=== PATIENT | female | born 1985 | race Caucasian/White ===

== ENCOUNTER 2018-11-22 09:58 | Emergency (ER) | payer BC ==
[2018-11-22] MEDS ORDERED: Ketorolac *IM* INJ* 60 MG/2 ML VIAL IM ONE (10:11)
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
[2018-11-22 11:38] VITALS: BP 125/89
== END 2018-11-22 11:37 | disposition home or self-care (01) ==
LOC: ED 09:58
DX: S82.001A Unspecified fracture of right patella, initial encounter for closed fracture (principal); W22.8XXA Striking against or struck by other objects, initial encounter; Y92.814 Boat as the place of occurrence of the external cause
CPT/HCPCS: 96372; 99282; J1885

== ENCOUNTER 2022-07-01 08:02 | Inpatient (IN) ==
[2022-07-01] MEDS ORDERED: Lactated Ringers 1000 ml BAG 1,000 ML IV ONE ×2 (08:22→14:36)
[2022-07-01] MEDS ORDERED: Buffered Lidocaine 1% SYRIN 1 ml INTRADERM ONE (08:22)
[2022-07-01] MEDS ORDERED: Lactated Ringers 1000 ml BAG 1,000 ML IV SCH ×3 (09:00→23:00)
[2022-07-01] MEDS ORDERED: Oxytocin in LR 20,000 MILLI.UNIT/1,000 ML BAG IV SCH ×2 (09:15→22:15)
[2022-07-01 09:27] LABS: ABS Monocytes 0.6 10^3/ul (0-0.8); ABS Neutrophils 5.6 10^3/ul (1.5-7.7); Eosinophil % 0.7 %; Hematocrit 37 % (35-47); Hemoglobin 12.7 g/dL (12.0-16.0); Lymphocyte % 14.2 %; Mean Corpuscular HGB Conc 34 g/dL (31-36); Mean Corpuscular Hemoglobin 31 pg (27-31); Mean Corpuscular Volume 91 fL (80-97); Mean Platelet Volume 7.5 fL (7.4-10.4); Platelet Count 167 10^3/uL (150-450); Red Blood Count 4.11 10^6 /uL (3.70-4.87); Red Cell Distribution Width 13 % (10-15); White Blood Count 7.3 10^3/uL (3.5-10.8)
[2022-07-01 09:33] LABS: Urine Benzodiazepine Screen None Detected (None Detect); Urine Cannabinoids Screen None Detected (None Detect); Urine Opiates Screen None Detected (None Detect)
[2022-07-01] MEDS ORDERED: Lidocaine 1.5% EPI 1:200,000 30 ML SDV ONE (14:07)
[2022-07-01] MEDS ORDERED: OBEPIDURAL (200 ML) 200 ML EPIDURAL ONE (14:07)
[2022-07-01] MEDS ORDERED: Sodium Citrate/Citric Acid LIQ 15 ML UDC PO PRN (14:36)
[2022-07-01] MEDS ORDERED: OBEPIDURAL (200 ML) 200 ML EPIDURAL SCH (15:00)
[2022-07-01 15:52] LABS: Urine Appearance Clear; Urine Bilirubin Negative (Negative); Urine Blood Negative (Negative); Urine Color Yellow; Urine Glucose Negative (Negative); Urine Ketones Negative (Negative); Urine Nitrite Negative (Negative); Urine Protein Negative (Negative); Urine Specific Gravity 1.009 (1.002-1.030); Urine Urobilinogen Negative (Negative)
[2022-07-01] MEDS ORDERED: Lidocaine 2% PF 10 ML AMP (OR) ONE (21:19)
[2022-07-01] MEDS ORDERED: Bupivacaine 0.25% SDV PF 10 ML VIAL INJ ONE (21:19)
[2022-07-01] MEDS ORDERED: Dibucaine 1% OINT 28.35 GM TUBE PR PRN (22:12)
[2022-07-01] MEDS ORDERED: Glycerin ADULT 2.4 gm SUPP PR PRN (22:12)
[2022-07-01] MEDS ORDERED: Witch Hazel PAD JAR TOPICAL PRN (22:12)
[2022-07-02 07:00] LABS: ABS Basophils 0.1 10^3/ul (0-0.2); ABS Monocytes 1.1 10^3/ul (0-0.8); ABS Neutrophils 11.8 10^3/ul (1.5-7.7); Eosinophil % 0.2 %; Hematocrit 36 % (35-47); Hemoglobin 12.4 g/dL (12.0-16.0); Lymphocyte % 7.2 %; Mean Corpuscular HGB Conc 34 g/dL (31-36); Mean Corpuscular Hemoglobin 31 pg (27-31); Mean Corpuscular Volume 90 fL (80-97); Mean Platelet Volume 7.8 fL (7.4-10.4); Platelet Count 169 10^3/uL (150-450); Red Blood Count 4.03 10^6 /uL (3.70-4.87); Red Cell Distribution Width 13 % (10-15); White Blood Count 14.1 10^3/uL (3.5-10.8)
[2022-07-03] MEDS ORDERED: Witch Hazel PAD JAR TOPICAL PRN (00:47)
[2022-07-03] MEDS ORDERED: Glycerin ADULT 2.4 gm SUPP PR PRN (00:47)
[2022-07-03] MEDS ORDERED: Dibucaine 1% OINT 28.35 GM TUBE PR PRN (00:47)
[2022-07-03 08:38] VITALS: BP 104/62
== END 2022-07-03 12:02 | disposition home or self-care (01) | DRG 560 ==
LOC: MCHOBOUT 08:02 → MCHOB 08:38
PROVIDERS: ADMIT Registered Nurse; ATTEND Registered Nurse